=== PATIENT | female | born 1950 | race Caucasian/White ===

== ENCOUNTER 2016-11-27 05:32 | Inpatient (IN) | payer OTHER, MEDICARE ==
[~2016-11-27 05:32] MED LIST: AMBIEN10 M1 PO; CITRUCEL500 M1 PO; FLONASE ALLERG9.9 ML; HYDROCODON-ACE1 EA16 PO; LISINOPRIL-HCT1 EAC1 PO; MULTIVITAMINS1 EAC6 PO; NORVASC5 M2 PO; OS-CAL 500+D31 EAC1 PO; PREMARIN30 GM OTHER; PROBIOTIC1 EAC6 PO; VITAMIN C500 M3 PO; VITAMIN D31000 UNI3 PO
== END 2016-11-27 13:45 | DRG 337 ==
LOC: SHSC 05:32 → ORW 07:34 → PACU 10:09 → SHSB 11:07
PROVIDERS: ADMIT Colon & Rectal Surgery
PROC: 0DN84ZZ Release Small Intestine, Percutaneous Endoscopic Approach (ICD-10-PCS; principal; 2016-11-27)
PROC: 8E0W4CZ Robotic Assisted Procedure of Trunk Region, Percutaneous Endoscopic Approach (ICD-10-PCS; 2016-11-27)
DX: K56.5 Intestinal adhesions [bands] with obstruction (postinfection) (principal); I10 Essential (primary) hypertension; J30.9 Allergic rhinitis, unspecified; K58.9 Irritable bowel syndrome, unspecified; M19.071 Primary osteoarthritis, right ankle and foot; M19.011 Primary osteoarthritis, right shoulder; M81.0 Age-related osteoporosis without current pathological fracture; K57.90 Diverticulosis of intestine, part unspecified, without perforation or abscess without bleeding; G43.109 Migraine with aura, not intractable, without status migrainosus
CPT/HCPCS: C9290; J1335; J1644; J1885; J2250; J3010; J7030